=== PATIENT | female | born 1990 | race Hispanic/Latino ===

== ENCOUNTER 2019-08-16 | Emergency (ER) | payer OTHER ==
[2019-08-16 06:24] LABS: HEMATOCRIT 30.2 % (37.0-47.0); HEMOGLOBIN 8.6 g/dl (12.0-16.0); IMMATURE GRANULOCYTES 0.3 % (0.0-5.0); MEAN CELL VOLUME 68.3 fL CALC (80.0-100.0); MEAN CORPUSCULAR HGB 19.5 pG CALC (26.0-32.0); MEAN CORPUSCULAR HGB CONC 28.5 g/dL CAL (32.0-36.0); RED BLOOD COUNT 4.42 mill/uL (4.20-5.60); RED CELL DISTRI WIDTH 17.6 % (11.5-15.5)
[2019-08-16 06:26] LABS: URINE BILIRUBIN - DIPSTICK NEGATIVE (NEGATIVE); URINE BLOOD DIPSTICK LARGE (NEGATIVE); URINE COLOR YELLOW; URINE GLUCOSE - DIPSTICK NEGATIVE (NEGATIVE); URINE KETONE NEGATIVE (NEGATIVE); URINE LEUK ESTERASE TRACE (NEGATIVE); URINE PROTEIN - DIPSTICK NEGATIVE (NEG-TRACE); URINE SPECIFIC GRAVITY >=1.030; URINE UROBILINOGEN - DIPSTICK 0.2 E.U./dL (0.2)
[2019-08-16 06:30] LABS: URINE NITRITE - DIPSTICK NEGATIVE (Negative)
[2019-08-16 06:31] LABS: URINE RBC >100 RBC/hpf (0-5)
[2019-08-16 06:32] LABS: URINE BACTERIA MODERATE hpf; URINE EPITHELIAL CELLS MODERATE EPI/hpf (0-FEW)
[2019-08-16 06:44] LABS: ALBUMIN 3.6 g/dL (3.2-5.0); ALKALINE PHOSPHATASE 96 u/l (38-126); AMYLASE 80 u/l (30-110); ANION GAP 10 (6-22 (CALC)); BILIRUBIN, TOTAL 0.4 mg/dL (0.0-1.4); BUN 11 mg/dL (7-17); BUN/CREATININE RATIO 25 (12-20 (CALC)); CARBON DIOXIDE 25 mmol/l (22-30); CHLORIDE 105 mmol/l (95-108); CREATININE 0.4 mg/dL (0.5-1.0); GFR > 60 ML/MIN (>=60 (CALC)); GFR FOR AFR.AMER. > 60 ML/MIN (>=60 (CALC)); LIPASE 125 u/l (23-300); POTASSIUM 4.2 mmol/l (3.5-5.1); SGOT/AST 17 u/l (14-36); SODIUM 136 mmol/l (137-146); TOTAL PROTEIN 7.2 g/dL (6.3-8.2)
[2019-08-16] MEDS ORDERED: ULTRAM50 M1 PO (10:37)
[2019-08-16] MEDS ORDERED: CEPHALEXIN500 M1 PO (10:44)
== END 2019-08-16 10:53 | disposition home or self-care (01) | DRG 392 ==
DX: R19.09 Other intra-abdominal and pelvic swelling, mass and lump (principal); N39.0 Urinary tract infection, site not specified
CPT/HCPCS: Q9967

== ENCOUNTER 2020-01-03 08:56 | Emergency (ER) | payer SELFPAY ==
[~2020-01-03] VITALS: Ht 157.5 cm; Wt 106.0 kg
[~2020-01-03 08:56] MED LIST: CEPHALEXIN500 M1 PO; ULTRAM50 M1 PO
[2020-01-03 09:44] LABS: HEMATOCRIT 35.4 % (37.0-47.0); HEMOGLOBIN 10.1 g/dl (12.0-16.0); IMMATURE GRANULOCYTES 0.1 % (0.0-5.0); MEAN CORPUSCULAR HGB 20.5 pG CALC (26.0-32.0); MEAN CORPUSCULAR HGB CONC 28.5 g/dL CAL (32.0-36.0); NEUT# 4.5 thou/uL (2.00-7.15); RED BLOOD COUNT 4.92 mill/uL (4.20-5.60); RED CELL DISTRI WIDTH 18.6 % (11.5-15.5)
[2020-01-03 10:03] LABS: ANION GAP 12 (6-22 (CALC)); BUN 9 mg/dL (7-17); BUN/CREATININE RATIO 22 (12-20 (CALC)); CARBON DIOXIDE 25 mmol/l (22-30); CHLORIDE 103 mmol/l (95-108); CREATININE 0.4 mg/dL (0.5-1.0); GFR > 60 ML/MIN (>=60 (CALC)); GFR FOR AFR.AMER. > 60 ML/MIN (>=60 (CALC)); SODIUM 136 mmol/l (137-146)
[2020-01-03 10:20] VITALS: BP 128/83
== END 2020-01-03 10:20 | disposition home or self-care (01) | DRG 103 ==
LOC: ED 08:56
PROVIDERS: Family Medicine
DX: R51 Headache (principal)

== ENCOUNTER 2020-08-20 20:53 | Emergency (ER) | payer BC ==
[2020-08-20] MEDS ORDERED: ONDANSETRON4 MG PO (22:17)
[2020-08-20] MEDS ORDERED: AMOXICILLIN500 MG PO (22:17)
[2020-08-20 22:47] VITALS: BP 133/76
== END 2020-08-20 22:57 | disposition home or self-care (01) | DRG 153 ==
LOC: ED 20:53
DX: J02.0 Streptococcal pharyngitis (principal); Z20.822 Contact with and (suspected) exposure to COVID-19

== ENCOUNTER 2020-11-25 10:26 | Emergency (ER) | payer BC ==
[~2020-11-25 10:26] MED LIST changes: +AMOXICILLIN500 MG PO; +ONDANSETRON4 MG PO
[2020-11-25 12:30] VITALS: BP 143/67
== END 2020-11-25 12:30 | disposition home or self-care (01) | DRG 153 ==
LOC: ED 10:26
DX: J06.9 Acute upper respiratory infection, unspecified (principal); Z20.822 Contact with and (suspected) exposure to COVID-19

== ENCOUNTER 2020-12-03 06:29 | Emergency (ER) | payer BC ==
[2020-12-03 08:35] VITALS: BP 122/68
== END 2020-12-03 09:26 | disposition home or self-care (01) | DRG 153 ==
LOC: ED 06:29
DX: J11.1 Influenza due to unidentified influenza virus with other respiratory manifestations (principal); Z20.822 Contact with and (suspected) exposure to COVID-19

== ENCOUNTER 2021-02-06 15:10 | Emergency (ER) | payer BC ==
[~2021-02-06] VITALS: Ht 157.5 cm; Wt 100.0 kg
[2021-02-06] MEDS ORDERED: KEFLEX500 MG PO (15:43)
[2021-02-06] MEDS ORDERED: BACTRIM DS1 TAB PO (15:43)
[2021-02-06 16:05] VITALS: BP 140/89
== END 2021-02-06 16:05 | disposition home or self-care (01) | DRG 603 ==
LOC: ED 15:10
DX: L03.311 Cellulitis of abdominal wall (principal); Z90.721 Acquired absence of ovaries, unilateral

== ENCOUNTER 2021-02-26 06:51 | Emergency (ER) | payer BC ==
[~2021-02-26] VITALS: Ht 157.5 cm; Wt 100.0 kg
[~2021-02-26 06:51] MED LIST changes: +BACTRIM DS1 TAB PO; +KEFLEX500 MG PO
[2021-02-26 08:00] LABS: URINE BILIRUBIN - DIPSTICK NEGATIVE (NEGATIVE); URINE BLOOD DIPSTICK NEGATIVE (NEGATIVE); URINE COLOR YELLOW; URINE GLUCOSE - DIPSTICK NEGATIVE (NEGATIVE); URINE KETONE NEGATIVE (NEGATIVE); URINE LEUK ESTERASE NEGATIVE (NEGATIVE); URINE PH 5.5 (4.5-8.0); URINE PROTEIN - DIPSTICK NEGATIVE (NEG-TRACE); URINE SPECIFIC GRAVITY 1.025; URINE UROBILINOGEN - DIPSTICK 0.2 E.U./dL (0.2)
[2021-02-26 08:03] LABS: HEMATOCRIT 33.9 % (37.0-47.0); HEMOGLOBIN 9.5 g/dl (12.0-16.0); MEAN CELL VOLUME 69.5 fL CALC (80.0-100.0); MEAN CORPUSCULAR HGB 19.5 pG CALC (26.0-32.0); NEUT# 3.65 thou/uL (2.00-7.15); RED BLOOD COUNT 4.88 mill/uL (4.20-5.60); RED CELL DISTRI WIDTH 19.2 % (11.5-15.5)
[2021-02-26 08:04] LABS: URINE NITRITE - DIPSTICK NEGATIVE (Negative)
[2021-02-26 08:15] LABS: ALBUMIN 4.1 g/dL (3.2-5.0); ALKALINE PHOSPHATASE 117 u/l (38-126); AMYLASE 78 u/l (30-110); ANION GAP 13 (6-22 (CALC)); BILIRUBIN, TOTAL 0.5 mg/dL (0.0-1.4); BUN 10 mg/dL (7-17); BUN/CREATININE RATIO 21 (12-20 (CALC)); CARBON DIOXIDE 25 mmol/l (22-30); CHLORIDE 105 mmol/l (95-108); CREATININE 0.5 mg/dL (0.5-1.0); GFR > 60 ML/MIN (>=60 (CALC)); GFR FOR AFR.AMER. > 60 ML/MIN (>=60 (CALC)); LIPASE 147 u/l (23-300); POTASSIUM 4.4 mmol/l (3.5-5.1); SGOT/AST 20 u/l (14-36); SODIUM 139 mmol/l (137-146); TOTAL PROTEIN 7.9 g/dL (6.3-8.2)
[2021-02-26] MEDS ORDERED: CLARITIN10 M1 PO (09:14)
[2021-02-26] MEDS ORDERED: AMOXICILLIN500 MG PO (09:14)
[2021-02-26 09:25] VITALS: BP 108/60
== END 2021-02-26 09:35 | disposition home or self-care (01) | DRG 392 ==
LOC: ED 06:51
PROVIDERS: Emergency Medicine
DX: R10.32 Left lower quadrant pain (principal); J02.0 Streptococcal pharyngitis; Z90.721 Acquired absence of ovaries, unilateral; Z20.822 Contact with and (suspected) exposure to COVID-19
CPT/HCPCS: Q9967

== ENCOUNTER 2022-02-02 16:10 | Emergency (ER) | payer SELFPAY ==
[~2022-02-02] VITALS: Ht 157.5 cm; Wt 96.0 kg
[~2022-02-02 16:10] MED LIST changes: +CLARITIN10 M1 PO
[2022-02-02 16:36] VITALS: BP 140/85
[2022-02-02] MEDS ORDERED: VIBRAMYCIN100 M2 PO (16:36)
== END 2022-02-02 18:26 | disposition home or self-care (01) | DRG 603 ==
LOC: ED 16:10
DX: L03.116 Cellulitis of left lower limb (principal)